=== PATIENT | female | born 1955 | race Caucasian/White ===

== ENCOUNTER → 2016-08-05 | Outpatient (CLI) | payer OTHER | LOC: MC.RAD 09:15 | DX: Z12.31 Encounter for screening mammogram for malignant neoplasm of breast (principal); Z80.3 Family history of malignant neoplasm of breast ==

== ENCOUNTER → 2017-05-23 | Outpatient (CLI) | payer BC | LOC: COL.CARD 09:30 | DX: R00.2 Palpitations (principal) ==

== ENCOUNTER → 2017-10-31 | Outpatient (CLI) | payer BC | LOC: MC.RAD 08:32 | DX: Z12.31 Encounter for screening mammogram for malignant neoplasm of breast (principal); N63.20 Unspecified lump in the left breast, unspecified quadrant ==

== ENCOUNTER → 2017-11-04 | Outpatient (CLI) | payer BC | LOC: MC.RAD 07:30 | DX: N60.42 Mammary duct ectasia of left breast (principal) ==

== ENCOUNTER → 2018-05-08 | Outpatient (CLI) | payer BC | LOC: MC.RAD 08:30 | DX: N60.42 Mammary duct ectasia of left breast (principal) | CPT/HCPCS: G0279 ==

== ENCOUNTER → 2018-12-11 | Outpatient (CLI) | payer BC | LOC: MC.RAD 08:36 | DX: Z12.31 Encounter for screening mammogram for malignant neoplasm of breast (principal) ==

== ENCOUNTER → 2020-02-09 | Outpatient (CLI) | payer BC ==
[~2020-02-09] MED LIST: ESTER C PO; KLOR-CON 88 ME1 PO; MAGNESIUM250 M1 PO; MASON NATURAL2000 IU PO; VITAMIN B COMPL1 SGL PO
== END ==
LOC: MC.RAD 01-19 15:00
DX: Z12.31 Encounter for screening mammogram for malignant neoplasm of breast (principal)

== ENCOUNTER → 2021-04-10 | Outpatient (CLI) | payer BC | LOC: MC.RAD 11:00 | DX: Z12.31 Encounter for screening mammogram for malignant neoplasm of breast (principal) ==